=== PATIENT | female | born 1970 ===

== ENCOUNTER 2017-07-07 14:38 | Inpatient (IN) ==
[2017-07-07] MEDS ORDERED: *HR* LORazepam 1 MG TABLET PO PRN (15:23)
[2017-07-07] MEDS ORDERED: *HR* LORazepam 2 MG/ML VIAL IM PRN (15:23)
[2017-07-07] MEDS ORDERED: Acetaminophen 325 MG TABLET PO PRN (15:23)
[2017-07-07] MEDS ORDERED: MOM Conc 10 ML UD.LIQ PO PRN (15:23)
[2017-07-07] MEDS ORDERED: Haloperidol Lactate 5 MG/ML VIAL IM PRN (15:23)
[2017-07-07] MEDS ORDERED: hydrOXYzine pamoate 25 MG CAPSULE PO PRN (15:23)
[2017-07-07] MEDS ORDERED: Mag Hydrox/Al Hydrox/Simeth 30 ML UDC PO PRN (15:23)
[2017-07-07] MEDS: Nicotine 21 MG PATCH.TD24 TD SCH (18:46)
[2017-07-07] MEDS ORDERED: traZODone 50 MG TABLET PO PRN (21:00)
--- NOTE | 2017-07-08 11:54 | Psychiatry History & Physical ---
Date of Encounter: 07/08/17 Time of Encounter: 11:30 History of Present Illness Patient Stated Chief Complaint: Paranoid delusions Medicare Admission Attestation: For traditional Medicare patients the provided hospital inpatient services are reasonable and necessary and in the case of services not specified as inpatient -only under 42 CFR 419.22 (n), that they are appropriately provided as inpatient services in accordance 42 CFR 412.3. For Critical Access Hospital the patient may reasonably be expected to be discharged or transferred to a hospital within 96 hours after admission to the Critical Access Hospital. Admitted From: Hospital to Hospital Transfer ([facility]) History of Present Illness: Ms. Jones is a 46 year old female admitted from [facility] for evaluation of extreme psychosis with delusions and paranoia and agitation, patient was combative with police and resistant during her transport to the hospital. UDS was positive for methamphetamine and THC. Patient had long history of drug abuse and arrests and fpc time for drug related charges. She reports swings and irritability poor sleep. She was noted to be hyperactive with pressured speech and irritability. Patient denied any previous hospitalization, she reports being prescribed outpatient medication and admitted to noncompliance with treatment. Past Med Surg Social Fam HX - Past Medical History Medical history: no medical history - Past Psychiatric History Past psychiatric history details: No records available - Social History Smoking Status: Current every day smoker Smokeless Tobacco Status: No Alcohol use: occasionally Drug use: none Medications & Allergies No Known Home Drugs 07/08/17 [History] 3 Allergy/AdvReac Type Severity Reaction Status Date / Time No Known Allergies Allergy Verified 07/08/17 08:49 Review of Systems Psychiatric: Reports: auditory hallucinations, visual hallucinations Mental Status Exam Patient orientation: Yes Person, Yes Time, Yes Place Level of alertness: Alert Patient appearance: Appropriate, Unkempt, Bizarre, Thin Behavior: calm, cooperative, restless, distractible, talkative Psychomotor activity: Increased Eye contact: Fleeting Contact Mood description: Euthymic/stable, Labile, Irritable Affect description: congruent with mood, labile, dysphoric Speech pattern: Normal rate, Normal rhythm, Normal tone, Pressured Speech volume: Normal Thought process: Linear, Goal Oriented Thought content: No Suicidal ideation, No Homicidal ideation, No Overt delusions , Yes Paranoid delusion Perceptual disturbances: No Auditory hallucinations, No Visual hallucinations Attention span: Capable of Focused Attention Memory description: Grossly Intact Patient reliability: Reliable Historian Intelligence estimate: Average Judgment: Limited Insight: Partial Results - Vital Signs Vital signs: Temp Pulse Resp BP 98.0 F 66 16 124/79 07/07/17 21:00 07/07/17 21:00 07/07/17 21:00 07/07/17 21:00 Assessment and Plan (1) Acute psychosis Current visit: Yes Status: Acute Plan: Admit inpatient for safety and stabilization, Close observation, Suicide Precautions per unit protocol, Encourage participation in unit milieu, Group Therapy, Monitor sleep, Monitor appetite Additional Plan: Ordered Depakote ER 250 mg twice daily, benefits and side effects were discussed patient is agreeable to start we will monitor Risks, benefits, side effects, alternatives discussed w/pt: Yes Patient agreeable to treatment: Yes Estimated Length of Stay (Days): 5 (2) Polysubstance abuse Current visit: Yes Status: Acute Plan: Admit inpatient for safety and stabilization, Close observation, Suicide Precautions per unit protocol, Encourage participation in unit milieu, Group Therapy, Monitor sleep, Monitor appetite Risks, benefits, side effects, alternatives discussed w/pt: Yes Patient agreeable to treatment: Yes
[2017-07-08] MEDS: Divalproex (12 HR) 250 MG TABLET PO SCH ×2 (13:18→20:34)
[2017-07-08] MEDS: Nicotine 21 MG PATCH.TD24 TD SCH (17:02)
[2017-07-08] MEDS: traZODone 50 MG TABLET PO PRN (20:34)
[2017-07-09] MEDS: Divalproex (12 HR) 250 MG TABLET PO SCH ×2 (09:17→20:41)
--- NOTE | 2017-07-09 13:06 | Psychiatry Progress Note ---
Date of Encounter: 07/09/17 Time of Encounter: 13:04 Subjective Interval history: Patient is to follow-up. Staff reports she is, and cooperative compliant with medication. She is interacting with staff and peers appropriately. No reports of agitation or irritability. Patient to me that she feels calmer and her sleep was fair. She is less "labile and not hyperactive. Polite and pleasant. Denies hallucination and suicidal ideation. Review of Systems Psychiatric: Reports: auditory hallucinations, visual hallucinations Objective: Exam Patient orientation: Yes Person, Yes Time, Yes Place Level of alertness: Alert Patient appearance: Appropriate, Well Groomed Behavior: calm, cooperative Psychomotor activity: Increased Eye contact: Maintains Eye Contact Mood description: Euthymic/stable, Labile Affect description: congruent with mood, full range, labile Speech pattern: Normal rate, Normal rhythm, Normal tone Speech volume: Normal Thought process: Linear, Goal Oriented Thought content: No Suicidal ideation, No Homicidal ideation, No Overt delusions Perceptual disturbances: No Auditory hallucinations, No Visual hallucinations Judgment: Fair Insight: Partial Results - Vital Signs Vital Signs: Temp Pulse Resp BP 98.4 F 74 16 102/70 07/09/17 08:10 07/09/17 08:10 07/09/17 08:10 07/09/17 08:10 Assessment and Plan (1) Acute psychosis Current visit: Yes Status: Acute Plan: Continue hospitalization, Close observation, Suicide Precautions per unit protocol, Encourage participation in unit milieu, Group Therapy, Monitor sleep, Monitor appetite Risks, benefits, side effects, alternatives discussed w/pt: Yes Patient agreeable to treatment: Yes (2) Polysubstance abuse Current visit: Yes Status: Acute Plan: Continue hospitalization, Close observation, Suicide Precautions per unit protocol, Encourage participation in unit milieu, Group Therapy, Monitor sleep, Monitor appetite Risks, benefits, side effects, alternatives discussed w/pt: Yes Patient agreeable to treatment: Yes Consult Discharge Plan - Plan Referrals: [facility] [Outside] - 07/12/17 10:00 am (The above appointment is with Yajaira Whatley for intake and mental health counseling services. You will also see Eufemia Dsouza for outpatient psychiatric assessment and medication management services on 07/20/2017 at 11:00am.)
[2017-07-09] MEDS: Nicotine 21 MG PATCH.TD24 TD SCH (15:00)
[2017-07-09] MEDS: traZODone 50 MG TABLET PO PRN (20:50)
[2017-07-10] MEDS: Divalproex (12 HR) 250 MG TABLET PO SCH ×2 (08:46→20:35)
[2017-07-10] MEDS: Nicotine 21 MG PATCH.TD24 TD SCH (08:47)
--- NOTE | 2017-07-10 13:39 | Psychiatry Progress Note ---
Date of Encounter: 07/10/17 Time of Encounter: 13:36 Subjective Interval history: Patient is here for follow-up. She reports stable sleep and denies any initial insomnia, her speech is not pressured psychomotor activity is is normalized. She is social with other patients. No reports of agitation or irritability or andreina or mood swings. Denies any side effects from medication denies any hallucinations and not endorsing any delusions. She is showing some improved insight. She was educated about medication compliance. Review of Systems Psychiatric: Reports: auditory hallucinations, visual hallucinations Objective: Exam Patient orientation: Yes Person, Yes Time, Yes Place Level of alertness: Alert Patient appearance: Appropriate, Well Groomed Behavior: calm, cooperative Psychomotor activity: Increased Eye contact: Maintains Eye Contact Mood description: Euthymic/stable, Labile Affect description: congruent with mood, full range Speech pattern: Normal rate, Normal rhythm, Normal tone, Clear Speech volume: Normal Thought process: Linear, Goal Oriented Thought content: No Suicidal ideation, No Homicidal ideation, No Overt delusions Perceptual disturbances: No Auditory hallucinations, No Visual hallucinations Judgment: Fair Insight: Partial Results - Vital Signs Vital Signs: Temp Pulse Resp BP 97.8 F 73 16 97/69 07/10/17 09:00 07/10/17 09:00 07/10/17 09:00 07/10/17 09:00 Assessment and Plan (1) Acute psychosis Current visit: Yes Status: Acute Plan: Continue hospitalization, Close observation, Suicide Precautions per unit protocol, Encourage participation in unit milieu, Group Therapy, Monitor sleep, Monitor appetite Risks, benefits, side effects, alternatives discussed w/pt: Yes Patient agreeable to treatment: Yes (2) Polysubstance abuse Current visit: Yes Status: Acute Plan: Continue hospitalization, Close observation, Suicide Precautions per unit protocol, Encourage participation in unit milieu, Group Therapy, Monitor sleep, Monitor appetite Risks, benefits, side effects, alternatives discussed w/pt: Yes Patient agreeable to treatment: Yes Consult Discharge Plan - Plan Referrals: [facility] [Outside] - 07/12/17 10:00 am (The above appointment is with Yajaira Whatley for intake and mental health counseling services. You will also see Eufemia Dsouza for outpatient psychiatric assessment and medication management services on 07/20/2017 at 11:00am.)
[2017-07-10] MEDS: traZODone 50 MG TABLET PO PRN (20:35)
[2017-07-11] MEDS: Nicotine 21 MG PATCH.TD24 TD SCH (09:52)
[2017-07-11] MEDS: Divalproex (12 HR) 250 MG TABLET PO SCH (09:53)
[2017-07-11 10:22] VITALS: BP 96/68
--- NOTE | 2017-07-11 12:13 | Discharge Summary ---
Date of Encounter: 07/11/17 Time of Encounter: 12:11 Diagnosis - Discharge Diagnosis (1) Acute psychosis Status: Acute (2) Polysubstance abuse Status: Acute Medications - Discharge Medications Prescriptions: Divalproex (12 HR) [Depakote (12 HR)] 250 mg PO BID #60 tablet. Divalproex (12 HR) [Depakote (12 HR)] 250 mg PO BID #60 tablet. 07/11/17 [Rx] 3 Allergy/AdvReac Type Severity Reaction Status Date / Time No Known Allergies Allergy Verified 07/08/17 08:49 Results Procedures and tests throughout hospitalization: Completed Lab Orders Category Date Time Status Valproate Routine Lab 07/11/17 07:31 Completed Provider Date of admission: 07/07/17 14:38 Discharging clinician: Phu Gonzalez Assessment and Plan - Patient/Caregiver Discharge Instructions Activity: resume usual activities as tolerated Diet: regular diet - Follow [facility] 10:00 am (The above appointment is with Yajaira Whatley for intake and mental health counseling services. You will also see Eufemia Dsouza for outpatient psychiatric assessment and medication management services on 07/20/2017 at 11:00am.) Functional capacity at discharge: independent ambulation Overall status at discharge: Stable Disposition: Home, Self-Care Hospital Course Hospital course: Ms. Jones is a 46 year old female admitted for exacerbation of bipolar disorder with his agitation and paranoia also abuse of THC and meth. For details of admission please see H&P On the unit patient was showing manic behavior with his agitation and combativeness loud speech pressured speech or hyperactivity, she was started on Depakote and she tolerated the medicine her symptoms improved her psychomotor activity stabilized, her speech became organized is not pressured, she was cooperative and social with other patients. She attended groups and activities , and there was no reports of any episodes of agitation or paranoia. On discharge patient was medically stable, her Depakote level was therapeutic and she denied any side effects to medication. Denied any hallucination or suicidal ideation. She was educated about medication and compliance with appointments and follow-up. Her discharge plan was completed by social work and she was discharged in stable condition. - Time Spent with Patient Total time spent providing and/or coordinating discharge services: Less than 30 minutes Quality - Multiple Antipsychotics Patient discharged on 2 or more antipsychotic medications: No Procedures - Procedures Procedures: Medication Management, Crisis Stabilization, Supportive Therapy, Group Therapy, Psychoeducational Therapy Mental Status Exam - Mental Status Exam Patient orientation: Yes Person, Yes Time, Yes Place Level of alertness: Alert Patient appearance: Appropriate, Well Groomed Behavior: calm, cooperative Psychomotor activity: Normal Eye contact: Maintains Eye Contact Mood description: Euthymic/stable Affect description: congruent with mood, full range Speech pattern: Normal rate, Normal rhythm, Normal tone Speech Volume: Normal Thought process: Linear, Goal Oriented Thought Content: No Suicidal ideation, No Homicidal ideation, No Overt delusions Perceptual Disturbances: No Auditory hallucinations, No Visual hallucinations Judgment: Limited Insight: Partial
[2017-07-11] MEDS ORDERED: FLUARIX QUAD 2017-18 36MOS UP/PF 0.5 ML SYRINGE IM ONE (12:25)
== END 2017-07-11 18:00 | disposition home or self-care (01) | DRG 753 ==
LOC: 1ANU 14:38
PROVIDERS: ADMIT Psychiatry & Neurology Psychiatry; ATTEND Psychiatry & Neurology Psychiatry